=== PATIENT | female | born 1960 | race Caucasian/White ===

== ENCOUNTER 2018-06-20 11:23 | Emergency (ER) | payer MEDICAID ==
[~2018-06-20] VITALS: Ht 152.4 cm; Wt 59.0 kg
[2018-06-20 11:27] VITALS: BP 127/53
== END 2018-06-20 15:17 | disposition home or self-care (01) ==
LOC: ER 11:23
DX: Z48.00 Encounter for change or removal of nonsurgical wound dressing (principal)
CPT/HCPCS: 99281

== ENCOUNTER 2018-07-05 11:38 | Emergency (ER) | payer MEDICAID ==
[~2018-07-05] VITALS: Ht 152.4 cm; Wt 59.0 kg
[2018-07-05 11:51] VITALS: BP 108/59
== END 2018-07-05 12:44 | disposition home or self-care (01) ==
LOC: ER 12:28
DX: S61.412D Laceration without foreign body of left hand, subsequent encounter (principal); Z98.890 Other specified postprocedural states; X58.XXXD Exposure to other specified factors, subsequent encounter
CPT/HCPCS: 99281; Z7610